=== PATIENT | male | born 1965 | race Caucasian/White ===

== ENCOUNTER → 2017-01-19 | Outpatient (CLI) | payer OTHER ==
[2017-01-19 07:44] LABS: HEMOGLOBIN 14.7 g/dL (14.1-18.0); LYMPH # 2.5 K/mm3 (0.7-4.5); LYMPH % 24.9 % (10-50)
[2017-01-19 08:42] LABS: BUN 8 mg/dL (7-18)
[2017-01-19 08:44] LABS: GFR (ESTIMATED) 102 ML/MIN (>60)
[2017-01-20 08:39] LABS: HBsAg Screen Negative (Negative); HIV Screen 4th Generation wRfx Non Reactive (Non Reactive); Hep A Ab, IgM Negative (Negative); Hep B Core Ab, IgM Negative (Negative); Hep C Virus Ab 0.3 (0.0-0.9); RA Latex Turbid. <10.0 IU/mL (0.0-13.9)
== END ==
LOC: LAB 07:22
PROVIDERS: Nurse Practitioner Family
DX: M25.521 Pain in right elbow (principal); Z00.00 Encounter for general adult medical examination without abnormal findings
CPT/HCPCS: G0432